=== PATIENT | male | born 1960 | race Caucasian/White ===

== ENCOUNTER → 2024-10-27 06:48 | Outpatient (REF) | payer OTHER, SELFPAY ==
[2024-10-27 07:20] LABS: % Basophils 1.3 % (0-2); % Eosinophils 4.4 % (0-6); % Immature Granulocytes 0.3 % (0-0.5); % Lymphocytes 39.7 % (20.5-51.1); % Monocytes 9.2 % (1.7-9.3); % Neutrophils 45.1 % (42.2-75.2); Absolute Basophils 0.1 10^3/uL (0-0.2); Absolute Eosinophils 0.3 10^3/uL (0-0.7); Absolute Lymphocytes 2.5 10^3/uL (1.2-3.4); Absolute Monocytes 0.6 10^3/uL (0.1-0.6); Absolute Neutrophils 2.8 10^3/uL (1.4-6.5); Hematocrit 42.4 % (39.0-52.0); Hemoglobin 14.8 g/dL (13.0-18.0); Mean Corp Hgb Conc. 34.9 g/dL (33.0-37.0); Mean Corpuscular Hgb 32.5 pg (27.0-31.0); Mean Platelet Volume 10.9 fL (7.4-10.4); Nucleated Red Blood Cells % 0 % (-); Platelet Count 193 10^3/uL (130-400); Red Blood Cell Count 4.56 10^6/uL (4.70-6.10); Red Cell Dist. Width 12.7 % (11.5-14.5); White Blood Cell Count 6.2 10^3/uL (4.8-10.8)
[2024-10-27 08:01] LABS: ALT (SGPT) 25 U/L (0-50); AST (SGOT) 25 U/L (17-59); Alkaline Phosphatase 52 U/L (38-126); Blood Urea Nitrogen 14 mg/dl (9-20); Calcium 9.8 mg/dl (8.4-10.2); Carbon Dioxide 27 mmol/L (22-30); Chloride 108 mmol/L (98-107); Glucose 99 mg/dl (70-99); HDL Cholesterol 45 mg/dl; LDL Cholesterol, Calculated 88 mg/dl; Sodium 142 mmol/L (135-145); Total Cholesterol 145 mg/dl (50-199); Total Protein 6.6 g/dl (6.3-8.2); Triglyceride 63 mg/dl (10-149); Very Low Density Lipoprotein 12 mg/dl (0-30); eGFR > 60.00
[2024-10-27 08:08] LABS: Vitamin D, 25-OH*** 54.4 ng/mL (30-80)
[2024-10-27 08:22] LABS: PSA, Total - Screen 0.58 ng/ml (0.0-4.0); TSH Reflex To Free T4 1.87 uIU/ml (0.47-4.68)
[2024-10-27 08:39] LABS: Potassium 4.6 mmol/L (3.5-5.1)
[2024-10-27 08:41] LABS: Vitamin B12 746 pg/ml (239-931)
[2024-10-27 14:37] LABS: Lyme Antibody Screen, EIA Negative (Negative)
[2024-10-28 22:29] LABS: % Free Testosterone 1.4 % (1.6-2.9); Free Testosterone 86 pg/mL (47-244); Sex Hormone Binding Globulin 57 nmol/L (19-76); Testosterone, Bioavailable 229 ng/dL (131-682); Total Testosterone 607 ng/dL (300-720)
== END ==
LOC: REG 06:48
PROVIDERS: ATTENDING PHYSICIAN Physician Assistant Medical
DX: F41.8 Other specified anxiety disorders (principal); F41.1 Generalized anxiety disorder; G47.33 Obstructive sleep apnea (adult) (pediatric); Z86.79 Personal history of other diseases of the circulatory system; G93.49 Other encephalopathy; E55.9 Vitamin D deficiency, unspecified; I87.2 Venous insufficiency (chronic) (peripheral); R53.83 Other fatigue
CPT/HCPCS: 36415; 80053; 80061; 82306; 82607; 84270; 84402; 84403; 84443; 85025; 86618; G0103